=== PATIENT | male | born 1980 | race Caucasian/White ===

== ENCOUNTER 2016-08-20 17:52 | Emergency (ER) | payer BC, MEDICAID ==
[2016-08-20 19:02] VITALS: BP 137/76
--- NOTE | 2016-08-20 20:25 | RAD ---
Indication: Left toe pain and redness. 3 views of the left great toe demonstrates soft tissue swelling at the interphalangeal joint. No fracture is identified. IMPRESSION: Soft tissue swelling at the interphalangeal joint without fracture.
[2016-08-20] MEDS ORDERED: Naproxen TAB* 250 MG PO ONE (20:36)
--- NOTE | 2016-08-20 21:26 | UC ---
Lower Extremity/Ankle HPI - HPI Summary HPI Summary: TODAY NOTICED MILD REDNESS, SWELLING AND TENDERNESS OF LEFT BIG TOE. NO KNOWN TRAUMA. NO FEVERS. NO DISCHARGE OR SIGNS OF INFECTION FROM TOENAIL, NO HISTORY OF GOUT; HOWEVER, GRANDFATHER HAD GOUT. - History of Current Complaint Chief Complaint: UCLowerExtremity Stated Complaint: LFT FOOT COMPLAINT Time Seen by Provider: 08/20/16 19:09 Hx Obtained From: Patient, Family/Slp Teacher Onset/Duration: Gradual Onset, Lasting Days, Still Present Severity Initially: Mild Severity Currently: Mild Pain Intensity: 0 Pain Scale Used: 0-10 Numeric Aggravating Factor(s): Standing, Ambulation Alleviating Factor(s): Rest Able to Bear Weight: Yes - Risk Factors Gout Risk Factors: Male, Obesity DVT Risk Factors: Negative Septic Arthritis Risk Factor: Negative - Allergies/Home Medications Allergies/Adverse Reactions: Allergies Allergy/AdvReac Type Severity Reaction Status Date / Time No Known Allergies Allergy Verified 08/20/16 18:53 Home Medications: Home Medications DULoxetine DR CAP* [Cymbalta CAP*] 90 mg DAILY 08/20/16 [History Confirmed 08/20] Esomeprazole Magnesium [Nexium] 1 tab DAILY 08/20/16 [History Confirmed 08/20/16 ] risperiDONE TAB* [RisperDAL*] 1 mg PO DAILY 08/20/16 [History Confirmed 08/20/16 ] PMH/Surg Hx/FS Hx/Imm Hx Previously Healthy: Yes - Surgical History Surgical History: Yes Surgery Procedure, Year, and Place: Nasal polyps. Hernia - Family History Known Family History: Positive: Diabetes, Other - GRANDFATHER GOUT - Social History Occupation: Disabled Lives: With Family Alcohol Use: None Substance Use Type: None Smoking Status (MU): Never Smoked Tobacco - Immunization History Most Recent Influenza Vaccination: 2016 Most Recent Tetanus Shot: 2014 Most Recent Pneumonia Vaccination: N/A Review of Systems Constitutional: Negative Skin: Rash - LEFT GREAT TOE Eyes: Negative ENT: Negative Respiratory: Negative Cardiovascular: Negative Gastrointestinal: Negative Genitourinary: Negative Motor: Negative Neurovascular: Negative Musculoskeletal: Arthralgia - LEFT GREAT TOE Neurological: Negative Psychological: Negative All Other Systems Reviewed And Are Negative: Yes Physical Exam Triage Information Reviewed: Yes Appearance: Well-Appearing, No Pain Distress, Well-Nourished Vital Signs: Initial Vital Signs Temp 97.9 F 08/20/16 18:55 Pulse 62 08/20/16 18:55 Resp 18 08/20/16 18:55 BP 137/76 08/20/16 18:55 Pulse Ox 100 08/20/16 18:55 Vital Signs Reviewed: Yes Eye Exam: Normal ENT Exam: Normal ENT: Positive: Normal ENT inspection, Hearing grossly normal, TMs normal Dental Exam: Normal Neck exam: Normal Respiratory Exam: Normal Respiratory: Positive: Chest non-tender, Lungs clear, Normal breath sounds, No respiratory distress Cardiovascular Exam: Normal Cardiovascular: Positive: RRR, No Murmur, Pulses Normal, Brisk Capillary Refill Musculoskeletal: Positive: Strength Intact, ROM Intact, Edema @ - MILD EDEMA ERRETHEMA AND TENDERNESS TO JOINT OF LEFT GREAT TOE Neurological Exam: Normal Psychological Exam: Normal - PATIENT HAS HIGH FUNCTIONING AUTISM Skin Exam: Normal Lower Extremity Course/Dx - Differential Dx/Diagnosis Differential Diagnosis/HQI/PQRI: Arthritis, Cellulitis, Fracture (Closed), Gout , Infection, Sprain Provider Diagnoses: LEFT GREAT TOE ARTHRALGIA, CONCERN FOR GOUT Discharge - Discharge Plan Condition: Stable Disposition: HOME Patient Education Materials: Low Purine Diet (ED), Gout (ED) Referrals: Kareem Barraza MD [Primary Care Provider] -
[2016-08-21 10:36] LABS: Hematocrit 40 % (42-52); Hemoglobin 13.9 g/dl (14.0-18.0); Mean Corpuscular HGB Conc 34 g/dl (31-36); Mean Corpuscular Hemoglobin 29 pg (27-31); Mean Corpuscular Volume 84 fL (80-94); Mean Platelet Volume 10 um3 (7.4-10.4); Red Blood Count 4.82 10^6/ul (4.0-5.4); Red Cell Distribution Width 13 % (10.5-15); White Blood Count 8.7 10^3/ul (3.5-10.8)
== END 2016-08-20 20:58 | disposition home or self-care (01) ==
LOC: UCCORT 17:52
DX: M79.675 Pain in left toe(s) (principal)
CPT/HCPCS: 36415; 84550; 85025; 99212; A9270-GY; G0463